=== PATIENT | female | born 1945 | race Caucasian/White ===

== ENCOUNTER 2021-11-18 13:00 | Inpatient (IN) | payer OTHER ==
[2021-11-23] MEDS ORDERED: Midazolam HCl 2 mg/2 ml Vial ONE (09:16)
[2021-11-23] MEDS ORDERED: Fentanyl 100 MCG/2 ML VIAL ONE ×2 (09:16→14:54)
[2021-11-23] MEDS ORDERED: fentaNYL Citrate/PF 100 MCG/2 ML SYRINGE ONE (09:59)
[2021-11-23] MEDS ORDERED: Sodium Chloride 0.9% 100 ML ONE (10:05)
[2021-11-23] MEDS ORDERED: cefOXitin 2 GM VIAL ONE ×2 (10:05→12:07)
[2021-11-23] MEDS ORDERED: Phenylephrine 10 MG/ML VIAL ONE (10:19)
[2021-11-23] MEDS ORDERED: Neostigmine Methylsulfate 3 MG/3 ML SYRINGE ONE (10:19)
[2021-11-23] MEDS ORDERED: ePHEDrine 50 MG/ML VIAL ONE (10:19)
[2021-11-23] MEDS ORDERED: Lidocaine 1% MPF 2 ML VIAL ONE (10:19)
[2021-11-23] MEDS ORDERED: Rocuronium Bromide 10 MG/ML (10ML VIAL) ONE (10:19)
[2021-11-23] MEDS ORDERED: PROPOFOL 200 MG/20 ML VIAL ONE (10:19)
[2021-11-23] MEDS ORDERED: Glycopyrrolate 0.2 MG/ML 5 ML SYRINGE ONE (10:19)
[2021-11-23] MEDS ORDERED: Bupivacaine HCl 0.5%/Epinephrine 1:200,000/PF 30 ml Vial ONE (10:19)
[2021-11-23] MEDS ORDERED: Promethazine HCl 25 MG/ML VIAL IM PRN (13:18)
[2021-11-23] MEDS ORDERED: hydrALAZINE 20 MG/ML VIAL SLOW IVP PRN (13:18)
[2021-11-23] MEDS ORDERED: Morphine 2 MG/ML VIAL SLOW IVP PRN (13:18)
[2021-11-23] MEDS ORDERED: Morphine 10 MG/ML VIAL SLOW IVP PRN (13:18)
[2021-11-23] MEDS: Sodium Chloride 0.9% 1,000 ML IV SCH ×2 (15:20→21:45)
[2021-11-23 15:29] VITALS: BMI 25.8
[2021-11-23] MEDS: Ketorolac Tromethamine 30 MG/ML VIAL IVP SCH (17:42)
[2021-11-23] MEDS: Ondansetron PF 4 MG/2 ML Vial IVP PRN (18:28)
[2021-11-23] MEDS: cefOXitin 2 GM in Sodium Chloride 0.9% 100 ML IVPB SCH (21:43)
[2021-11-23] MEDS: Famotidine 20 MG TAB PO SCH (21:44)
[2021-11-23] MEDS: Famotidine/PF 20 mg/2ml Vial SLOW IVP SCH (21:45)
[2021-11-24] MEDS: Ketorolac Tromethamine 30 MG/ML VIAL IVP SCH ×4 (00:41→17:31)
[2021-11-24] MEDS: cefOXitin 2 GM in Sodium Chloride 0.9% 100 ML IVPB SCH (04:00)
[2021-11-24] MEDS: Sodium Chloride 0.9% 1,000 ML IV SCH ×2 (05:20→13:43)
[2021-11-24 06:28] LABS: #Lymphocytes 0.8 thou/uL (1.20-3.40); #Monocytes 0.8 thou/uL (0.11-0.59); #Neutrophils 6.8 thou/uL (1.40-6.50); %Lymphocytes 9.5 % (21.0-51.0); %Monocytes 9.3 % (0.0-10.0); %Neutrophils 81.2 % (42.0-75.0); Mean Corpuscular HGB CONC 33.5 g/dL (32.0-36.0); Mean Corpuscular Hemoglobin 30.8 pg (27.0-31.0); Mean Platelet Volume 8.3 fL (7.4-10.4); Platelet Count 130 thou/uL (130-400); RBC Distribution Width 12.3 % (11.5-14.5); Red Blood Cell (RBC) Count 3.24 mill/uL (4.20-5.40); White Blood Cell (WBC) Count 8.3 thou/uL (4.8-10.8)
[2021-11-24 06:52] LABS: Anion Gap 13 mmol/L (10-20); BUN (Urea Nitrogen) 23 mg/dL (9.8-20.1); Calc. Creatinine Clearance 31 mL/min (70-130); Carbon Dioxide 18 mmol/L (23-31); Chloride 113 mmol/L (98-107); Estimated GFR 29; Glucose 156 mg/dL (83-110); Potassium 4.8 mmol/L (3.5-5.1); Sodium 139 mmol/L (136-145)
[2021-11-24] MEDS: Famotidine/PF 20 mg/2ml Vial SLOW IVP SCH ×2 (08:13→19:20)
[2021-11-24] MEDS: Ondansetron PF 4 MG/2 ML Vial IVP PRN (08:13)
[2021-11-24] MEDS: Famotidine 20 MG TAB PO SCH ×2 (08:13→19:21)
[2021-11-24] MEDS ORDERED: Enoxaparin Sodium 40 MG/0.4 ML SYRINGE SC SCH (09:00)
[2021-11-25] MEDS: Sodium Chloride 0.9% 1,000 ML IV SCH ×4 (00:04→23:48)
[2021-11-25] MEDS: Ketorolac Tromethamine 30 MG/ML VIAL IVP SCH ×5 (00:34→23:46)
[2021-11-25] MEDS: Morphine 4 MG/ML VIAL SLOW IVP PRN (01:55)
[2021-11-25] MEDS: Famotidine 20 MG TAB PO SCH ×2 (09:13→21:31)
[2021-11-25] MEDS: Famotidine/PF 20 mg/2ml Vial SLOW IVP SCH ×2 (11:17→21:33)
[2021-11-25] MEDS: Enoxaparin Sodium 30 MG/0.3 ML SYRINGE SC SCH (11:20)
[2021-11-25] MEDS: Ondansetron PF 4 MG/2 ML Vial IVP PRN (21:44)
[2021-11-26] MEDS: Ketorolac Tromethamine 30 MG/ML VIAL IVP SCH ×3 (05:22→16:55)
[2021-11-26] MEDS: Famotidine 20 MG TAB PO SCH ×2 (09:01→21:13)
[2021-11-26] MEDS: Enoxaparin Sodium 30 MG/0.3 ML SYRINGE SC SCH (09:18)
[2021-11-26] MEDS: Famotidine/PF 20 mg/2ml Vial SLOW IVP SCH ×2 (09:18→21:13)
[2021-11-26] MEDS: Sodium Chloride 0.9% 1,000 ML IV SCH ×2 (09:19→16:59)
[2021-11-26 10:44] LABS: #Eosinphils 0.2 thou/uL (0.0-0.7); #Lymphocytes 0.9 thou/uL (1.20-3.40); #Monocytes 0.3 thou/uL (0.11-0.59); #Neutrophils 3.9 thou/uL (1.40-6.50); %Eosinophils 3.6 % (0.0-10.0); %Monocytes 6.5 % (0.0-10.0); Hemoglobin 8.7 g/dL (12.0-16.0); Mean Corpuscular HGB CONC 34.5 g/dL (32.0-36.0); Mean Corpuscular Volume 92.8 fL (78.0-98.0); Mean Platelet Volume 7.7 fL (7.4-10.4); Platelet Count 107 thou/uL (130-400); RBC Distribution Width 11.8 % (11.5-14.5); Red Blood Cell (RBC) Count 2.71 mill/uL (4.20-5.40); White Blood Cell (WBC) Count 5.3 thou/uL (4.8-10.8)
[2021-11-26 11:01] LABS: Anion Gap 12 mmol/L (10-20); BUN (Urea Nitrogen) 27 mg/dL (9.8-20.1); Calc. Creatinine Clearance 60 mL/min (70-130); Calcium 8.2 mg/dL (7.8-10.44); Carbon Dioxide 15 mmol/L (23-31); Chloride 115 mmol/L (98-107); Estimated GFR 65; Glucose 95 mg/dL (83-110); Potassium 4.1 mmol/L (3.5-5.1); Sodium 138 mmol/L (136-145)
[2021-11-26] MEDS: Morphine 4 MG/ML VIAL SLOW IVP PRN ×2 (21:30→23:55)
[2021-11-27] MEDS: Sodium Chloride 0.9% 1,000 ML IV SCH ×3 (00:56→15:31)
[2021-11-27] MEDS: Morphine 4 MG/ML VIAL SLOW IVP PRN (04:44)
[2021-11-27] MEDS: Famotidine 20 MG TAB PO SCH ×2 (08:38→20:23)
[2021-11-27] MEDS: Famotidine/PF 20 mg/2ml Vial SLOW IVP SCH ×2 (08:38→20:23)
[2021-11-27] MEDS: Enoxaparin Sodium 30 MG/0.3 ML SYRINGE SC SCH (08:38)
[2021-11-27] MEDS ORDERED: Acetaminophen 325 MG TAB PO PRN ×2 (12:56)
[2021-11-27] MEDS ORDERED: traMADol HCl 50 MG TAB PO PRN ×2 (12:56)
[2021-11-28] MEDS: Sodium Chloride 0.9% 1,000 ML IV SCH ×2 (02:46→18:07)
[2021-11-28 08:02] LABS: Hemoglobin 8.1 g/dL (12.0-16.0); Mean Corpuscular HGB CONC 31.9 g/dL (32.0-36.0); Mean Corpuscular Hemoglobin 30.4 pg (27.0-31.0); Mean Corpuscular Volume 95.2 fL (78.0-98.0); Mean Platelet Volume 7.7 fL (7.4-10.4); Platelet Count 122 thou/uL (130-400); RBC Distribution Width 11.8 % (11.5-14.5); Red Blood Cell (RBC) Count 2.68 mill/uL (4.20-5.40); White Blood Cell (WBC) Count 8.3 thou/uL (4.8-10.8)
[2021-11-28 08:24] LABS: ALT (SGPT) 12 U/L (8-55); AST (SGOT) 14 U/L (5-34); Albumin 2.4 g/dL (3.4-4.8); Alkaline Phosphatase 44 U/L (40-110); Anion Gap 13 mmol/L (10-20); BUN (Urea Nitrogen) 20 mg/dL (9.8-20.1); Bilirubin, Total 0.4 mg/dL (0.2-1.2); Calc. Creatinine Clearance 69 mL/min (70-130); Calcium 8.5 mg/dL (7.8-10.44); Carbon Dioxide 14 mmol/L (23-31); Chloride 117 mmol/L (98-107); Estimated GFR 77; Glucose 129 mg/dL (83-110); Potassium 4.2 mmol/L (3.5-5.1); Protein, Total 5.4 g/dL (5.8-8.1); Sodium 140 mmol/L (136-145)
[2021-11-28] MEDS: Enoxaparin Sodium 30 MG/0.3 ML SYRINGE SC SCH (09:07)
[2021-11-28] MEDS: Famotidine/PF 20 mg/2ml Vial SLOW IVP SCH ×2 (09:07→20:17)
[2021-11-28] MEDS: Famotidine 20 MG TAB PO SCH ×2 (09:12→20:17)
[2021-11-28 09:14] LABS: Band 20 % (5-11); Hypochromia SLIGHT = 6-15 cells (100X) (0-5/hpf); Lymphocytes 8 % (21-51); MDiff Complete? YES; Monocytes 3 % (0-10); Neutrophil 69 % (42-75); Platelet Morphology Comment Appears Decreased; Polychromasia SLIGHT = 2-3 cells (100X) (0-2/hpf)
[2021-11-28 10:51] LABS: Actual Bicarbonate (HCO3a) 15.2 mEq/L (22-28); Base Excess (BEa) -8.5 mEq/L (-2.0 to +3.0); Calcium, Ionized (arterial) 1.22 mmol/L (1.12-1.30); Carboxyhemoglobin (COHb) 0.1 gm% (0.0-3.0); Hemoglobin (Hb) 9.8 g/dL (12.0-16.0); O2 Tension (PaO2), arterial 88.3 mmHg (> 70.0); Potassium - ABG Lab 3.85 mmol/L (3.70-5.30); pH, Arterial 7.39 (7.35-7.45)
[2021-11-28 10:56] LABS: CO2 Tension 25.8 mmHg (35.0-45.0); Puncture Site RRA
[2021-11-28 12:50] LABS: Thyroid Stimulating Hormone 2.9953 uIU/mL (0.35-4.94)
[2021-11-28 14:54] LABS: Lactic Acid 1.6 mmol/L (0.5-2.2)
[2021-11-29 08:37] LABS: Anion Gap 12 mmol/L (10-20); BUN (Urea Nitrogen) 16 mg/dL (9.8-20.1); Calc. Creatinine Clearance 76 mL/min (70-130); Calcium 8.3 mg/dL (7.8-10.44); Carbon Dioxide 19 mmol/L (23-31); Chloride 113 mmol/L (98-107); Estimated GFR 87; Glucose 96 mg/dL (83-110); Potassium 3.8 mmol/L (3.5-5.1); Sodium 140 mmol/L (136-145)
[2021-11-29] MEDS: Famotidine/PF 20 mg/2ml Vial SLOW IVP SCH (08:58)
[2021-11-29] MEDS: Enoxaparin Sodium 30 MG/0.3 ML SYRINGE SC SCH (08:59)
[2021-11-29] MEDS: Enoxaparin Sodium 40 MG/0.4 ML SYRINGE SC SCH (09:07)
[2021-11-29] MEDS: Famotidine 20 MG TAB PO SCH (10:02)
[2021-11-29] MEDS ORDERED: Furosemide 40 MG/4 ML VIAL SLOW IVP SCH (12:30)
[2021-11-30] MEDS: Levothyroxine Sodium 112 MCG TAB PO SCH (05:22)
[2021-11-30 06:18] LABS: Anion Gap 15 mmol/L (10-20); BUN (Urea Nitrogen) 15 mg/dL (9.8-20.1); Calc. Creatinine Clearance 81 mL/min (70-130); Calcium 8.4 mg/dL (7.8-10.44); Carbon Dioxide 20 mmol/L (23-31); Chloride 110 mmol/L (98-107); Estimated GFR 90; Glucose 88 mg/dL (83-110); Potassium 3.4 mmol/L (3.5-5.1); Sodium 142 mmol/L (136-145)
[2021-11-30] MEDS: Enoxaparin Sodium 40 MG/0.4 ML SYRINGE SC SCH (08:12)
[2021-11-30] MEDS: Fenofibrate Nanocrystallized 145 MG TAB PO SCH (08:12)
[2021-12-01 06:19] LABS: Anion Gap 13 mmol/L (10-20); BUN (Urea Nitrogen) 12 mg/dL (9.8-20.1); Calc. Creatinine Clearance 87 mL/min (70-130); Carbon Dioxide 22 mmol/L (23-31); Chloride 108 mmol/L (98-107); Estimated GFR 92; Glucose 100 mg/dL (83-110); Potassium 3.1 mmol/L (3.5-5.1); Sodium 140 mmol/L (136-145)
[2021-12-01] MEDS: Levothyroxine Sodium 112 MCG TAB PO SCH (06:46)
[2021-12-01] MEDS ORDERED: Potassium Chloride 20 MEQ TAB PO SCH ×2 (07:45→08:00)
[2021-12-01] MEDS: Enoxaparin Sodium 40 MG/0.4 ML SYRINGE SC SCH (08:16)
[2021-12-01] MEDS: Fenofibrate Nanocrystallized 145 MG TAB PO SCH (08:16)
[2021-12-01 12:44] VITALS: BP 126/66; TEMP 97.5
== END 2021-12-01 13:50 | disposition home or self-care (01) | DRG 329 ==
LOC: SURG A 11-23 06:48 → EDSTATUS 11-23 13:00 → SURG B 11-23 15:28
PROVIDERS: ADMIT Surgery; ATTEND Surgery
PROC: 0DBP0ZZ Excision of Rectum, Open Approach (ICD-10-PCS; principal; 2021-11-23)
PROC: 0DJD4ZZ Inspection of Lower Intestinal Tract, Percutaneous Endoscopic Approach (ICD-10-PCS; 2021-11-23)
PROC: 0D1B0Z4 Bypass Ileum to Cutaneous, Open Approach (ICD-10-PCS; 2021-11-23)
PROC: 0DBN0ZZ Excision of Sigmoid Colon, Open Approach (ICD-10-PCS; 2021-11-23)
DX: N82.3 Fistula of vagina to large intestine (principal); G92.8 Other toxic encephalopathy; J96.01 Acute respiratory failure with hypoxia; E87.2 Acidosis; K57.32 Diverticulitis of large intestine without perforation or abscess without bleeding; K56.7 Ileus, unspecified; Z20.822 Contact with and (suspected) exposure to COVID-19; N73.6 Female pelvic peritoneal adhesions (postinfective); I10 Essential (primary) hypertension; E78.5 Hyperlipidemia, unspecified; E03.9 Hypothyroidism, unspecified; E87.70 Fluid overload, unspecified; D64.9 Anemia, unspecified; E87.6 Hypokalemia; E87.8 Other disorders of electrolyte and fluid balance, not elsewhere classified; I25.10 Atherosclerotic heart disease of native coronary artery without angina pectoris; Z90.89 Acquired absence of other organs; Z90.49 Acquired absence of other specified parts of digestive tract; Z88.5 Allergy status to narcotic agent; Z88.6 Allergy status to analgesic agent; Z98.51 Tubal ligation status; Z90.710 Acquired absence of both cervix and uterus; Z82.3 Family history of stroke; Z82.49 Family history of ischemic heart disease and other diseases of the circulatory system; Z80.9 Family history of malignant neoplasm, unspecified
CPT/HCPCS: 36415; 36600; 71045; 80048; 80053; 82140; 82805; 83605; 83880; 84439; 84443; 84481; 85025; 88307; 94640; 97139; A4649; J0694; J1650; J1885; J1940; J2250; J2270; J2370; J2405; J2704; J3010; J3490; J7050; J7620; S0028

== ENCOUNTER 2021-11-18 13:04 | Outpatient (CLI) | payer MEDICARE ==
[2021-11-18 13:59] LABS: #Eosinphils 0.2 10x3/uL (0.0-0.5); #Monocytes 0.6 10x3/uL (0.0-1.1); #Neutrophils 3.1 10x3/uL (1.5-8.4); %Basophils 0.5 % (0.0-2.0); %Eosinophils 3.4 % (0.0-6.0); %Lymphocytes 32.8 % (18.0-47.0); %Monocytes 10.5 % (0.0-10.0); %Neutrophils 52.3 % (40.0-75.0); Hemoglobin 12.7 g/dL (12.0-15.5); Mean Corpuscular HGB CONC 33.4 g/dL (32.0-36.0); Mean Corpuscular Volume 89.8 fl (81.6-98.3); Mean Platelet Volume 10.5 fl (7.4-10.4); Platelet Count 189 10x3/uL (150-450); RBC Distribution Width 12.8 % (11.5-14.5); Red Blood Cell (RBC) Count 4.23 10x6/uL (3.90-5.03); White Blood Cell (WBC) Count 5.9 10x3/uL (3.5-10.5)
[2021-11-18 14:23] LABS: ALT (SGPT) 21 U/L (8-55); AST (SGOT) 24 U/L (5-34); Albumin 4.1 g/dL (3.4-4.8); Alkaline Phosphatase 39 U/L (40-110); Anion Gap 14 mmol/L (10-20); BUN (Urea Nitrogen) 26 mg/dL (9.8-20.1); Bilirubin, Direct 0.2 mg/dL (0.1-0.3); Bilirubin, Total 0.4 mg/dL (0.2-1.2); Calc. Creatinine Clearance 0 mL/min (70-130); Calcium 10.2 mg/dL (7.8-10.44); Carbon Dioxide 24 mmol/L (23-31); Chloride 109 mmol/L (98-107); Estimated GFR 54; Globulin 3.6 g/dL (2.4-3.5); Glucose 110 mg/dL (83-110); Potassium 4.2 mmol/L (3.5-5.1); Protein, Total 7.7 g/dL (5.8-8.1); Sodium 143 mmol/L (136-145)
== END 2021-11-18 13:05 | disposition home or self-care (01) ==
LOC: LABBT 13:04
PROVIDERS: ATTEND Surgery
DX: Z01.812 Encounter for preprocedural laboratory examination (principal); N82.3 Fistula of vagina to large intestine; Z20.822 Contact with and (suspected) exposure to COVID-19
CPT/HCPCS: 80053; 80076; 85025; 87811

== ENCOUNTER 2021-12-27 10:01 | Outpatient (CLI) | payer OTHER ==
[~2021-12-27 10:01] MED LIST: MD-Gastroview 120 ML BOT ONE
== END 2021-12-27 10:02 | disposition home or self-care (01) ==
LOC: RAD 10:01
PROVIDERS: ATTEND Surgery
DX: N32.1 Vesicointestinal fistula (principal); K57.30 Diverticulosis of large intestine without perforation or abscess without bleeding
CPT/HCPCS: 74280; Q9963

== ENCOUNTER 2022-01-20 12:15 | Inpatient (IN) | payer OTHER ==
[2022-01-24 09:41] VITALS: BMI 22.9
[2022-01-25] MEDS ORDERED: SUGAMMADEX SODIUM 200 MG/2 ML VIAL ONE (07:00)
[2022-01-25] MEDS ORDERED: fentaNYL Citrate/PF 100 MCG/2 ML SYRINGE ONE (07:00)
[2022-01-25 07:13] LABS: SARS-CoV-2 NAA Rapid Test Not Detected (NotDetected)
[2022-01-25] MEDS ORDERED: Sodium Chloride 0.9% 100 ML ONE (07:27)
[2022-01-25] MEDS ORDERED: cefOXitin 2 GM VIAL ONE (07:27)
[2022-01-25] MEDS ORDERED: Dexamethasone 20 MG/5 ML VIAL ONE (07:33)
[2022-01-25] MEDS ORDERED: Ondansetron PF 4 MG/2 ML Vial ONE (07:33)
[2022-01-25] MEDS ORDERED: PROPOFOL 200 MG/20 ML VIAL ONE (07:33)
[2022-01-25] MEDS ORDERED: Rocuronium Bromide 10 MG/ML (10ML VIAL) ONE (07:33)
[2022-01-25] MEDS ORDERED: PHENYLEPHRINE-NS 100 MCG/ML 10 ML SYRINGE ONE (07:33)
[2022-01-25] MEDS ORDERED: hydrALAZINE 20 MG/ML VIAL SLOW IVP PRN (08:55)
[2022-01-25] MEDS ORDERED: Promethazine HCl 25 MG/ML VIAL IM PRN ×2 (08:55→09:05)
[2022-01-25] MEDS ORDERED: Ondansetron PF 4 MG/2 ML Vial IVP PRN (08:55)
[2022-01-25] MEDS ORDERED: Morphine 10 MG/ML VIAL SLOW IVP PRN (08:55)
[2022-01-25] MEDS ORDERED: Morphine 2 MG/ML VIAL SLOW IVP PRN (08:55)
[2022-01-25] MEDS ORDERED: Morphine 4 MG/ML VIAL SLOW IVP PRN (08:55)
[2022-01-25] MEDS: Famotidine 20 MG TAB PO SCH (09:00)
[2022-01-25] MEDS: Enoxaparin Sodium 40 MG/0.4 ML SYRINGE SC SCH (09:00)
[2022-01-25] MEDS: Famotidine/PF 20 mg/2ml Vial SLOW IVP SCH (09:00)
[2022-01-25] MEDS ORDERED: Ondansetron HCl/PF 4 MG/2 ML Vial IVP PRN (09:05)
[2022-01-25] MEDS ORDERED: Promethazine HCl 25 MG/ML VIAL IVPB PRN (09:05)
[2022-01-25] MEDS ORDERED: HYDROmorphone 2 MG/ML VIAL SLOW IVP PRN (09:05)
[2022-01-25] MEDS ORDERED: FENTANYL 50 MCG/ML VIAL 50 MCG/ML VIAL ONE ×2 (09:15→09:31)
[2022-01-25] MEDS ORDERED: HYDROmorphone 0.5 MG/0.5 ML SYRINGE ONE ×3 (09:44→10:28)
[2022-01-25] MEDS ORDERED: HYDROmorphone 2 MG/ML VIAL ONE (10:04)
[2022-01-25] MEDS ORDERED: Promethazine HCl 25 MG/ML VIAL ONE (10:14)
[2022-01-25] MEDS: Sodium Chloride 0.9% 1,000 ML IV SCH ×3 (12:30→22:59)
[2022-01-25] MEDS: cefOXitin 2 GM in Sodium Chloride 0.9% 100 ML IVPB SCH ×2 (16:48→22:59)
[2022-01-25] MEDS ORDERED: Acetaminophen 325 MG TAB PO PRN (20:45)
[2022-01-25] MEDS: Ketorolac Tromethamine 30 MG/ML VIAL IVP PRN (21:14)
[2022-01-26] MEDS: Sodium Chloride 0.9% 1,000 ML IV SCH ×3 (05:43→23:36)
[2022-01-26 06:08] LABS: #Eosinphils 0.1 thou/uL (0.0-0.7); #Lymphocytes 1.6 thou/uL (1.20-3.40); #Monocytes 0.4 thou/uL (0.11-0.59); #Neutrophils 3.2 thou/uL (1.40-6.50); %Lymphocytes 30.4 % (21.0-51.0); %Monocytes 7.2 % (0.0-10.0); %Neutrophils 61.4 % (42.0-75.0); Hemoglobin 9.7 g/dL (12.0-16.0); Mean Corpuscular HGB CONC 32.4 g/dL (32.0-36.0); Mean Corpuscular Volume 95.8 fl (78.0-98.0); Platelet Count 142 thou/uL (130-400); RBC Distribution Width 12.1 % (11.5-14.5); Red Blood Cell (RBC) Count 3.12 mill/uL (4.20-5.40); White Blood Cell (WBC) Count 5.3 thou/uL (4.8-10.8)
[2022-01-26 06:26] LABS: Anion Gap 11 mmol/L (10-20); BUN (Urea Nitrogen) 13 mg/dL (9.8-20.1); Calc. Creatinine Clearance 45 mL/min (70-130); Calcium 8.2 mg/dL (7.8-10.44); Carbon Dioxide 22 mmol/L (23-31); Chloride 113 mmol/L (98-107); Estimated GFR 56; Glucose 94 mg/dL (83-110); Potassium 4.2 mmol/L (3.5-5.1); Sodium 142 mmol/L (136-145)
[2022-01-26] MEDS: Famotidine 20 MG TAB PO SCH (09:01)
[2022-01-26] MEDS: Famotidine/PF 20 mg/2ml Vial SLOW IVP SCH (09:11)
[2022-01-26] MEDS: Enoxaparin Sodium 40 MG/0.4 ML SYRINGE SC SCH (09:11)
[2022-01-26] MEDS: Ketorolac Tromethamine 30 MG/ML VIAL IVP PRN (13:13)
[2022-01-27 08:19] VITALS: BP 129/66; TEMP 97.9
[2022-01-27] MEDS: Enoxaparin Sodium 40 MG/0.4 ML SYRINGE SC SCH (08:41)
[2022-01-27] MEDS: Famotidine 20 MG TAB PO SCH (08:42)
[2022-01-27] MEDS: Famotidine/PF 20 mg/2ml Vial SLOW IVP SCH (08:46)
== END 2022-01-27 09:51 | disposition home or self-care (01) | DRG 331 ==
LOC: SURG A 01-25 05:36
PROVIDERS: ADMIT Surgery; ATTEND Surgery
PROC: 0DBB0ZZ Excision of Ileum, Open Approach (ICD-10-PCS; principal; 2022-01-25)
DX: Z43.2 Encounter for attention to ileostomy (principal); Z20.822 Contact with and (suspected) exposure to COVID-19
CPT/HCPCS: 36415; 36416; 80048; 85025; 88304; A4649; J0694; J1100; J1170; J1650; J1885; J2405; J2550; J2704; J3490; J7050; S0028; U0002

== ENCOUNTER 2022-01-23 12:08 | Outpatient (CLI) | payer OTHER, MEDICARE ==
[2022-01-23 12:46] LABS: #Eosinphils 0.2 10x3/uL (0.0-0.5); #Monocytes 0.5 10x3/uL (0.0-1.1); #Neutrophils 3.3 10x3/uL (1.5-8.4); %Basophils 0.5 % (0.0-2.0); %Eosinophils 3.9 % (0.0-6.0); %Lymphocytes 30.9 % (18.0-47.0); %Monocytes 8.4 % (0.0-10.0); Hemoglobin 12.1 g/dL (12.0-15.5); Mean Corpuscular HGB CONC 32.3 g/dL (32.0-36.0); Mean Corpuscular Hemoglobin 30.2 pg (27.0-33.0); Mean Corpuscular Volume 93.5 fl (81.6-98.3); Mean Platelet Volume 9.8 fl (7.4-10.4); Platelet Count 243 10x3/uL (150-450); RBC Distribution Width 12.9 % (11.5-14.5); Red Blood Cell (RBC) Count 4.01 10x6/uL (3.90-5.03); White Blood Cell (WBC) Count 5.8 10x3/uL (3.5-10.5)
[2022-01-23 12:55] LABS: ALT (SGPT) 18 U/L (8-55); AST (SGOT) 35 U/L (5-34); Albumin 4.1 g/dL (3.4-4.8); Alkaline Phosphatase 40 U/L (40-110); Anion Gap 14 mmol/L (10-20); BUN (Urea Nitrogen) 19 mg/dL (9.8-20.1); Bilirubin, Total 0.3 mg/dL (0.2-1.2); Calc. Creatinine Clearance 0 mL/min (70-130); Calcium 9.8 mg/dL (7.8-10.44); Carbon Dioxide 21 mmol/L (23-31); Chloride 110 mmol/L (98-107); Estimated GFR 43; Globulin 3.6 g/dL (2.4-3.5); Glucose 118 mg/dL (83-110); Potassium 4.4 mmol/L (3.5-5.1); Protein, Total 7.7 g/dL (5.8-8.1); Sodium 141 mmol/L (136-145)
== END 2022-01-23 12:09 | disposition home or self-care (01) ==
LOC: LABBT 12:08
PROVIDERS: ATTEND Surgery
DX: Z01.818 Encounter for other preprocedural examination (principal); N82.4 Other female intestinal-genital tract fistulae
CPT/HCPCS: 80053; 85025